=== PATIENT | female | born 1955 | race Caucasian/White ===

== ENCOUNTER → 2020-07-30 | Outpatient (CLI) | payer MEDICARE, BC | LOC: MAMO 09:51 | DX: Z12.31 Encounter for screening mammogram for malignant neoplasm of breast (principal) | CPT/HCPCS: 77063; 77067 ==

== ENCOUNTER → 2020-10-03 | Outpatient (CLI) | payer MEDICARE, BC | LOC: OPSV 10-02 08:00 | DX: M81.0 Age-related osteoporosis without current pathological fracture (principal) | CPT/HCPCS: 96372 ==

== ENCOUNTER → 2021-04-12 | Outpatient (CLI) | payer MEDICARE, BC ==
[~2021-04-12] VITALS: Ht 160 cm; Wt 49.9 kg
== END ==
LOC: OPSV 04-05 08:00
DX: M18.0 Bilateral primary osteoarthritis of first carpometacarpal joints (principal)
CPT/HCPCS: 96372

== ENCOUNTER → 2021-11-06 | Outpatient (CLI) | payer MEDICARE, BC | LOC: OPSV 10-18 15:00 | DX: M81.0 Age-related osteoporosis without current pathological fracture (principal) | CPT/HCPCS: 96372 ==